=== PATIENT | female | born 1985 ===

== ENCOUNTER 2024-11-30 08:37 | Emergency (ER) | payer BC, OTHER ==
[~2024-11-30] VITALS: Ht 157.5 cm; Wt 77.2 kg
[2024-11-30 08:41] VITALS: TEMP 98.7
[2024-11-30 09:47] VITALS: BP 154/89; PULSE 86; RESP 18; O2SAT 98
[2024-11-30] MEDS: TETRACAINE HCL 0.5% OPTH(EYE) SOLN 4ML RIGHTEYE ONE (09:47)
[2024-11-30] MEDS ORDERED: GENT0.3S10 RIGHTEYE (09:52)
--- NOTE | 2024-11-30 09:52 | ED.PDOC ---
History of Present Illness HPI Comments 39 y/o F, presents to the ED for CC of right eye irritation. Patient states, she went camping last night (11/29/24) and woke up with right eye redness and irritation. Patient relays, right eye to now be draining clear fluid. Upon arrival to the ED, patient was given [id number] of Tetracaine to the right eye wi th relief of symptoms. Patient denies changes in vision, pruritus, or headache. No other symptoms or modifying factors are present at this time. Chief Complaint: Eye Problem Time Seen by MD: 09:00 Reviewed Notes: Nurses Notes, Medications, Allergies Allergies: Coded Allergies: NO KNOWN ALLERGIES (Unverified , 11/30/24) Home Meds Active Scripts Gentamicin Sulfate (Gentamicin Sulfate) 0.3 % Ana, 2 DROP RIGHTEYE QID, #5 ML Prov:EMERSON KATHLEEN MD 11/30/24 Information Source: Patient Mode of Arrival: Ambulatory Severity: Moderate Timing: Hours Duration: Since onset Prehospital treatment: None Past Medical History PAST MEDICAL HISTORY: Denies Surgical History: FORESTRY PILOT History: Denies all FORESTRY PILOT Hx Family History Family History: Family hx of Cancer Social History Smoker: Non-Smoker Alcohol: Occasionally Drugs: Denies Drug Use Lives In: Home Constitutional: denies: chills, diaphoresis, fatigue, fever, malaise, sweats, weakness, others EENTM: reports: eye pain, eye redness; denies: blurred vision, double vision, ear bleeding, ear discharge, ear drainage, ear pain, ear ringing, hearing loss, mouth pain, mouth swelling, nasal discharge, nose bleeding, nose congestion, nose pain, photophobia, tearing, throat pain, throat swelling, voice changes, others Respiratory: denies: cough, hemoptysis, orthopnea, SOB at rest, shortness of breath, SOB with excertion, stridor, wheezing, others Cardiovascular: denies: chest pain, dizzy spells, diaphoresis, Dyspnea on exertion, edema, irregular heart beat, left arm pain, lightheadedness, palpitations, PND, syncope, others Gastrointestinal: denies: abdomen distended, abdominal pain, blood streaked bowels, constipated, diarrhea, dysphagia, difficulty swallowing, hematemesis, melena, nausea, poor appetite, poor fluid intake, rectal bleeding, rectal pain, vomiting, others Genitourinary: denies: abnormal vagina bleeding, burning, dyspareunia, dysuria, flank pain, frequency, hematuria, incontinence, pain, , vagina discharge, urgency, others Neurological: denies: dizziness, fainting, headache, left sided numbness, left sided weakness, numbness, paresthesia, pre-existing deficit, right sided n umbness, right sided weakness, seizure, speech problems, tingling, tremors, weakness, others Musculoskeletal: denies: back pain, gout, joint pain, joint swelling, muscle pain, muscle stiffness, neck pain, others Integumetry: denies: bruises, change in color, change in hair/nails, dryness, laceration, lesions, lumps, rash, wounds, others Allergic/Immunocompromised: denies: Difficulty Healing, Frequent Infections, Hives, Itching, others Hematologic/Lymphatic: denies: anemia, blood clots, easy bleeding, easy bruising, swollen glands, others Endocrine: denies: excessive hunger, excessive sweating, excessive thirst, excessive urination, flushing, intolerance to cold, intolerance to heat, unexplained weight gain, unexplained weight loss, others Psychiatric: denies: anxiety, bipolar disorder, depression, hopeless, panic disorder, schizophrenia, sleepless, suicidal, others All Other Systems: Reviewed and Negative Physical Exam General Appearance: No Apparent Distress HEENT: Pharynx Normal, TMs Normal, Other (Right eye redness with drainage) Neck: Full Range of Motion, Non-Tender, Normal, Normal Inspection Respiratory: Chest Non-Tender, Lungs Clear, No Accessory Muscle Use, No Respiratory Distress, Normal Breath Sounds Cardiovascular: No Edema, No JVD, No Murmur, No Gallop, Normal Peripheral Pulses, Regular Rate/Rhythm Breast Exam: Deferred Gastrointestinal: No Organomegaly, Non Tender, No Pulsatile Mass, Normal Bowel Sounds, Soft Genitalia: Deferred Pelvic: Deferred Rectal: Deferred Extremities: No calf tenderness, Normal capillary refill, Normal inspection, Normal range of motion, Non-tender, No pedal edema Musculoskeletal : Apperance: Normal Neurologic: Alert, 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 Was a procedure done?: No Differential Dx Considerations may include: corneal abrasion, conjunctivitis, allergies X-Ray, Labs, Meds, VS Vital Signs Date Time Temp Pulse Resp B/P (MAP) Pulse Ox O2 Delivery O2 Flow Rate FiO2 11/30/24 09:47 86 18 98 Room Air 11/30/24 09:47 86 18 154/89 (110) 98 11/30/24 08:41 98.7 79 16 148/97 96 98.7 Current Medications Medications (Trade) Dose Ordered Sig/Crys Route Start Time Stop Time Status Last Admin Tetracaine HCl (Tetracaine 0.5% Opth Soln) 2 drop ONCE ONCE RIGHTEYE 11/30/24 09:30 11/30/24 09:31 DC 11/30/24 09:47 Patient had two drops of tetracaine placed to the right eye at this time Patient states that she is having some relief The patient was given a prescription of gentamicin solution for her eye The patient will follow up with the primary care doctor The patient will return to the emergency department's the condition worsens Time of 1ST Reevaluation: 09:30 Reevaluation 1ST: Unchanged Patient Education/Counseling: Diagnosis, Treatment, Prognosis, Need For Follow Up Family Education/Counseling: No Family Present SEPSIS Sepsis Screen Date sepsis recognized/suspect: Nov 30, 2024 Time Sepsis recognized/suspect: 0841 Recent Procedure: No On Antibiotic Therapy: No Respiratory Rate >20: No Heart Rate >90: No Temp<36 C (96.8 F) or >38.3 C: No SBP <90 or MAP <65 mmHG: No New Acute Mental Status Change: No Is the patient on CPAP, BIPAP,: No Vital Signs Date Time Temp Pulse Resp B/P (MAP) Pulse Ox O2 Delivery O2 Flow Rate FiO2 11/30/24 09:47 86 18 98 Room Air 11/30/24 09:47 86 18 154/89 (110) 98 11/30/24 08:41 98.7 79 16 148/97 96 98.7 Medications Medications Dose Ordered Sig/Crys Route Start Time Stop Time Status Last Admin Dose Admin Tetracaine HCl 2 drop ONCE ONCE RIGHTEYE 11/30/24 09:30 11/30/24 09:31 DC 11/30/24 09:47 Departure 1 Departure Time of Disposition: 09:52 Impression: Primary Impression: Conjunctivitis, right eye Qualified Codes: H10.31 - Unspecified acute conjunctivitis, right eye Disposition: HOME / SELF CARE / HOMELESS Condition: Fair e-Prescriptions Gentamicin Sulfate (Gentamicin Sulfate) 0.3 % Ana 2 DROP RIGHTEYE QID, #5 ML Prov: EMERSON KATHLEEN MD 11/30/24 Discharged With: Self Critical Care Note Critical Care Time?: No Stability Stability form required: No Heart Score Heart Score: Heart Score Response (Comments) Value History N/A 0 EKG N/A 0 Age N/A 0 Risk Factors N/A 0 Troponin N/A 0 Total 0 I personally scribed for EMERSON KATHLEEN MD ([email or web address]) on 11/30/24 at 09:52. Electronically submitted by Abeba Alston ([email or web address]). EMERSON KATHLEEN MD Nov 30, 2024 09:52
== END 2024-11-30 10:02 | disposition home or self-care (01) ==
LOC: ER 08:37
DX: H10.31 Unspecified acute conjunctivitis, right eye (principal); F10.90 Alcohol use, unspecified, uncomplicated; Z79.899 Other long term (current) drug therapy; Z98.890 Other specified postprocedural states; Y90.9 Presence of alcohol in blood, level not specified